=== PATIENT | female | born 1935 | race Caucasian/White ===

== ENCOUNTER 2018-10-14 06:16 | Emergency (ER) | payer BC, MEDICARE ==
[~2018-10-14] VITALS: Ht 157.5 cm; Wt 36.3 kg
[~2018-10-14 06:16] MED LIST: ALPHAGAN; ASPI81TA31 PO; ATOR20TA PO; CLOP75TA15 PO; LATA2.5D2 EACHEYE; [UNRECOGNIZED DRUG - REMARK]
--- NOTE | 2018-10-14 06:29 | NUR ---
PATIENT BIB [facility] FOR SVT, PER AMBULANCE PATIENT CONVERTED BACK TO [facility] ARRIVAL PATIENT IS ALERT/ORIENTED X4, DENIES ANY CHEST PAIN, PALPITATIONS. EKG DONE, HR 110. DR. BUENROSTRO AT BEDSIDE FOR MSE.
[2018-10-14] MEDS ORDERED: MEDR2.5T PO (06:38)
[2018-10-14] MEDS ORDERED: VITA400C24 (06:38)
[2018-10-14] MEDS ORDERED: EYE (06:38)
[2018-10-14] MEDS ORDERED: IPRA12.9 IH (06:38)
[2018-10-14] MEDS ORDERED: XALATAN 0.005% (06:38)
[2018-10-14] MEDS ORDERED: ITRA100C PO (06:38)
[2018-10-14] MEDS ORDERED: ATORVASTATIN 20 MG TABLET (06:38)
[2018-10-14] MEDS ORDERED: ALPHAGAN P 0.1% (06:38)
[2018-10-14] MEDS ORDERED: MULT-1201 PO (06:38)
[2018-10-14 06:50] LABS: BASOPHILS % (AUTO) 0.8 % (0.0-2.0); EOSINOPHILS # (AUTO) 0.1 K/uL (0.0-0.7); EOSINOPHILS % (AUTO) 3.1 % (0.0-7.0); HEMATOCRIT 39.4 % (31.2-41.9); LYMPHOCYTES # (AUTO) 0.6 K/uL (20.0-40.0); LYMPHOCYTES % (AUTO) 17.5 % (20.5-51.5); MEAN CORPUSCULAR HEMOGLOBIN 31.8 uug (24.7-32.8); MEAN CORPUSCULAR HGB CONC 33 g/dL (32.3-35.6); MEAN CORPUSCULAR VOLUME 96.6 fL (75.5-95.3); MONOCYTES # (AUTO) 0.4 K/uL (2.0-10.0); MONOCYTES % (AUTO) 12.2 % (0.0-11.0); NEUTROPHILS # (AUTO) 2.4 K/uL (1.8-8.9); NEUTROPHILS % (AUTO) 66.4 % (38.5-71.5); PLATELET COUNT (AUTO) 226 K/uL (179-408); RED BLOOD CELL COUNT(AUTO) 4.08 MIL/uL (3.63-4.92); WHITE BLOOD COUNT (AUTO) 3.5 K/uL (3.8-11.8)
[2018-10-14 06:56] LABS: CARBON DIOXIDE 34 mmol/L (21-32); CHLORIDE 102 mmol/L (98-107); CREATININE 0.5 mg/dL (0.6-1.3); GLUCOSE 99 mg/dL (74-106); POTASSIUM 4.3 mmol/L (3.5-5.1); UREA NITROGEN, BLOOD 20 mg/dL (7-18)
--- NOTE | 2018-10-14 07:00 | NUR ---
REPORT GIVEN TO EMIR BERMUDEZ RN.
--- NOTE | 2018-10-14 07:03 | NUR ---
RECEIVED SHIFT REPORT FROM VIRGILIO HARO. PT RESTING COMFORTABLY IN BED. VSS.
[2018-10-14 07:13] LABS: ALANINE AMINOTRANSFERASE 16 U/L (14-59); ALKALINE PHOSPHATASE 79 U/L (50-136); ASPARTATE AMINOTRANSFERASE 12 U/L (15-37); BILIRUBIN,DIRECT 0.1 mg/dL (0.0-0.2); BILIRUBIN,TOTAL 0.5 mg/dL (0.2-1.0); TOTAL PROTEIN, SERUM 8.4 g/dL (6.4-8.2)
[2018-10-14 07:14] LABS: MAGNESIUM 2.2 mg/dL (1.8-2.4)
[2018-10-14 07:29] LABS: THYROID STIMULATING HORMONE 1.753 mIU/mL (0.358-3.740)
[2018-10-14] MEDS ORDERED: SWABABLE VALVE TRANSFER SET EA MC ONE (07:49)
[2018-10-14] MEDS ORDERED: IOHEXOL 350 100 ML INFUS..BTL ONE (07:50)
[2018-10-14] MEDS ORDERED: IV NORMAL SALINE 250 ML IV ONE (07:50)
--- NOTE | 2018-10-14 07:58 | NUR ---
PT TAKEN TO RADIOLOGY FOR CTA.
--- NOTE | 2018-10-14 08:20 | NUR ---
PT BACK IN ER FROM RADIOLOGY.
[2018-10-14 08:47] LABS: *BILIRUBIN,URIN NEGATIVE (NEGATIVE); *CLARITY,URINE CLEAR (CLEAR); *COLOR,URINE YELLOW (YELLOW); *KETONES,URINE NEGATIVE (NEGATIVE); *UROBILINOGEN,URINE 0.2 E.U./dl (NORMAL); LEUKOCYTE ESTERASE ,URINE NEGATIVE (NEGATIVE); NITRITE, URINE NEGATIVE (NEGATIVE); UGLUCOSE NEGATIVE (NEGATIVE)
[2018-10-14 09:02] LABS: *BLOOD, URINE TRACE (NEGATIVE)
[2018-10-14 09:03] LABS: SQUAMOUS EPITHELIAL CELL,UR FEW /HPF (NONE SEEN); WBC,URINE 0-3 /HPF (0-3)
[2018-10-14 09:57] VITALS: BP 123/89
--- NOTE | 2018-10-14 09:57 | NUR ---
Patient discharged to home in stable conditon. Written and verbal after care instructions given. Patient verbalizes understanding of instructions. ALL BELONGINGS W/ PT. PT SELF-AMBULATED W/O DIFFICULTY.
== END 2018-10-14 09:58 | disposition home or self-care (01) ==
LOC: ER 06:20
DX: R00.0 Tachycardia, unspecified (principal); J90 Pleural effusion, not elsewhere classified; I10 Essential (primary) hypertension; E78.5 Hyperlipidemia, unspecified; K21.9 Gastro-esophageal reflux disease without esophagitis; Z88.0 Allergy status to penicillin; Z88.5 Allergy status to narcotic agent; Z88.8 Allergy status to other drugs, medicaments and biological substances; Z79.899 Other long term (current) drug therapy; Z79.82 Long term (current) use of aspirin; Z79.01 Long term (current) use of anticoagulants
CPT/HCPCS: 36415; 71045; 71275; 80048; 80076; 81000; 81001; 83605; 83735; 84443; 84484; 85025; 85379; 87040 ×2; 87086; 93005; 99284; Q9967; 70030-TC; A4663; J7050